=== PATIENT | female | born 1955 | race Caucasian/White ===

== ENCOUNTER 2018-08-31 18:20 | Emergency (ER) | payer BC ==
[2018-08-31] MEDS ORDERED: Sodium Chloride 0.9% 10 ML Syringe FLUSH PRN (18:41)
--- NOTE | 2018-08-31 18:41 | EDM.PDOC ---
ED HPI GENERAL MEDICAL PROBLEM - General Chief Complaint: Gastrointestinal Problem Stated Complaint: VOMITTING DIZZY Time Seen by Provider: 08/31/18 18:28 Source of Information: Reports: Patient History Limitations: Reports: No Limitations - History of Present Illness INITIAL COMMENTS - FREE TEXT/NARRATIVE: 63-year-old female who reports that she was working in the yard this afternoon doing some trimming some other long work and then at approximately 4:30 to 5 PM today she began to feel very dizzy and somewhat weak. She had no headache. She had no shortness of breath. She had no chest pain. She went inside at this time and drinks some water and then some Gatorade and laid down to try to relax. She was still having the room spinning dizziness at this time. And she seemed to feel a little bit better lying down but when she sat up she developed nausea and then had vomiting 2, throwing up all of the Gatorade in the water that she had taken. There was no blood in her emesis. She presents here via private vehicle with her with continued dizziness, and nausea and feeling weak all over. She still has no headache, chest pain or shortness of breath. She tells me that she felt completely well prior to this occurring today and she had felt well the day before. She has had an intermittent cough for the past few weeks but she feels that that is related to allergies. She has no pain. She rates her pain as a 0/10. There are no other associated signs or symptoms. There are no other modifying factors. 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 This was followed by radiation and chemotherapy.) Musculoskeletal Surgical History: Reports: Knee Replacement (Left total knee replacement.) Social & Family History - Tobacco Use Smoking Status *Q: Never Smoker - Caffeine Use Caffeine Use: Reports: Coffee, Soda - Alcohol Use Alcohol Use History: Yes Alcohol Use Frequency: Socially - Recreational Drug Use Recreational Drug Use: No - Living Situation & Occupation Living situation: Reports: (She is here with her .) Occupation: Retired ED ROS GENERAL - Review of Systems Review Of Systems: See Below Constitutional: Reports: Malaise, Weakness HEENT: Reports: Other (Dry mouth) Respiratory: Reports: No Symptoms Cardiovascular: Reports: Lightheadedness Endocrine: Reports: No Symptoms GI/Abdominal: Reports: Nausea, Vomiting : Reports: No Symptoms Musculoskeletal: Reports: No Symptoms Skin: Reports: Diaphoresis (Somewhat clammy) Neurological: Reports: Dizziness Hematologic/Lymphatic: Reports: No Symptoms Immunologic: Reports: No Symptoms ED EXAM, GENERAL - Physical Exam Exam: See Below Exam Limited By: No Limitations General Appearance: Alert, WD/WN, Moderate Distress Eye Exam: Bilateral Eye: EOMI, Normal Inspection, PERRL Ears: Normal External Exam Ear Exam: Bilateral Ear: Auricle Normal Nose: Normal Inspection, Normal Mucosa, No Blood Throat/Mouth: Normal Voice, No Airway Compromise, Other (Dry mucous membranes) Head: Atraumatic, Normocephalic Neck: Normal Inspection, Supple, Non-Tender, Full Range of Motion Respiratory/Chest: No Respiratory Distress, Lungs Clear, Normal Breath Sounds, No Accessory Muscle Use, Chest Non-Tender Cardiovascular: Normal Peripheral Pulses, Regular Rate, Rhythm, No JVD Peripheral Pulses: 2+: Radial (L), Radial (R), Dorsalis Pedis (L), Dorsalis Pedis (R) GI/Abdominal: Normal Bowel Sounds, Soft, Non-Tender, No Mass Back Exam: Normal Inspection, Full Range of Motion Extremities: Normal Inspection, Normal Range of Motion, Non-Tender, No Pedal Edema, Normal Capillary Refill Neurological: Alert, Oriented, CN II-XII Intact, Normal Cognition, No Motor/ Sensory Deficits Skin Exam: Intact, Normal Color, No Rash, Diaphoretic (Clammy) Course - Vital Signs Last Recorded V/S: Last Vital Signs Temp 36.3 C 08/31/18 19:41 Pulse 87 08/31/18 19:41 Resp 14 08/31/18 19:41 BP 148/78 H 08/31/18 19:41 Pulse Ox 100 08/31/18 19:41 - Orders/Labs/Meds Orders: Active Orders 24 hr Category Date Time Status Sodium Chloride 0.9% [Normal Saline] 1,000 ml Med 08/31/18 20:45 Active IV ASDIRECTED Sodium Chloride 0.9% [Saline Flush] Med 08/31/18 18:41 Active 10 ml FLUSH ASDIRECTED PRN Peripheral IV Insertion Adult [OM.PC] Routine Oth 08/31/18 18:41 Ordered Medication Orders Sodium Chloride (Normal Saline) 1,000 mls @ 500 mls/hr IV ASDIRECTED BRAN Last Admin: 08/31/18 20:45 Dose: 500 mls/hr Sodium Chloride (Saline Flush) 10 ml FLUSH ASDIRECTED PRN PRN Reason: Keep Vein Open Last Admin: 08/31/18 19:32 Dose: 10 ml Labs: Laboratory Tests 08/31/18 08/31/18 08/31/18 Range/Units 18:50 18:50 21:35 WBC 7.1 (4.5-12.0) X10-3/uL RBC 5.02 (3.23-5.20) x10(6)uL Hgb 14.6 (11.5-15.5) g/dL Hct 44.7 (30.0-51.3) % MCV 89.1 (80-96) fL MCH 29.0 (27.7-33.6) pg MCHC 32.6 (32.2-35.4) g/dL RDW 12.2 (11.5-15.5) % Plt Count 275 (125-369) X10(3)uL MPV 8.1 (7.4-10.4) fL Neut % (Auto) 72.4 (46-82) % Lymph % (Auto) 18.8 (13-37) % [place] % (Auto) 5.6 (4-12) % Eos % (Auto) 3 (1.0-5.0) % Baso % (Auto) 1 (0-2) % Neut # (Auto) 5.2 (1.6-8.3) # Lymph # (Auto) 1.3 (0.6-5.0) # [place] # (Auto) 0.4 (0.0-1.3) # Eos # (Auto) 0.2 (0.0-0.8) # Baso # (Auto) 0.0 (0.0-0.2) # Sodium 143 (135-145) mmol/L Potassium 3.7 (3.5-5.3) mmol/L Chloride 104 (100-110) mmol/L Carbon Dioxide 26 (21-32) mmol/L BUN 19 H (7-18) mg/dL Creatinine 1.0 (0.55-1.02) mg/dL Est Cr Clr Drug Dosing 53.91 mL/min Estimated GFR (MDRD) 56 L (>60) BUN/Creatinine Ratio 19.0 (9-20) Glucose 172 H (80-116) mg/dL Calcium 10.8 H (8.6-10.2) mg/dL Magnesium 2.0 (1.8-2.5) mg/dL Total Bilirubin 0.4 (0.1-1.3) mg/dL AST 20 (5-25) IU/L ALT 34 (12-36) U/L Alkaline Phosphatase 78 (56-112) IU/L Total Protein 7.7 (6.0-8.0) g/dL Albumin 4.7 H (3.2-4.6) g/dL Globulin 3.0 g/dL Albumin/Globulin Ratio 1.6 Urine Color Yellow (YELLOW) Urine Appearance Clear (CLEAR) Urine pH 7.0 H (5.0-6.5) Ur Specific [place] 1.010 (1.010-1.025) Urine Protein Negative (NEGATIVE) mg/dL Urine Glucose (UA) Normal (NORMAL) mg/dL Urine Ketones Negative (NEGATIVE) mg/dL Urine Occult Blood Negative (NEGATIVE) Urine Nitrite Negative (NEGATIVE) Urine Bilirubin Negative (NEGATIVE) Urine Urobilinogen Normal (NEGATIVE) mg/dL Ur Leukocyte Esterase Negative (NEGATIVE) Urine RBC 0-5 (0-5) Urine WBC 0-5 (0-5) Ur Squamous Epith Cells Few H (NS,R,O) Urine Bacteria Few H (NS) Meds: Medications Generic Name Dose Route Start Last Admin Trade Name Freq PRN Reason Stop Dose Admin Sodium Chloride 1,000 mls @ 500 mls/hr 08/31/18 20:45 08/31/18 20:45 Normal Saline IV 500 mls/hr ASDIRECTED BRAN Administration Sodium Chloride 10 ml 08/31/18 18:41 08/31/18 19:32 Saline Flush FLUSH 10 ml ASDIRECTED PRN Administration Keep Vein Open Discontinued Medications Generic Name Dose Route Start Last Admin Trade Name Shima PRN Reason Stop Dose Admin Sodium Chloride 1,000 mls @ 999 mls/hr 08/31/18 18:42 08/31/18 18:51 Normal Saline IV 08/31/18 19:42 999 mls/hr .BOLUS ONE Administration Promethazine HCl 12.5 mg/ 50.5 mls @ 200 mls/hr 08/31/18 20:45 08/31/18 20:49 Sodium Chloride IV 08/31/18 21:00 200 mls/hr ONETIME STA Administration Metoclopramide HCl 10 mg 08/31/18 19:26 08/31/18 19:30 Reglan IVPUSH 08/31/18 19:27 10 mg ONETIME ONE Administration Ondansetron HCl 4 mg 08/31/18 18:42 08/31/18 18:51 Zofran IVPUSH 08/31/18 18:43 4 mg ONETIME ONE Administration - Re-Assessments/Exams Free Text/Narrative Re-Assessment/Exam: 08/31/18 19:07: Care transferred to Dr. Mahajan. Please see Dr. Mahajan's note in regard to the patient's further clinical course and disposition. An IV has been established and the patient is getting IV fluids and Zofran. Laboratory testing is pending at this time. Departure - Departure Time of Disposition: 19:07 Disposition: Still A Patient 30 Condition: Fair Clinical Impression: Dehydration Heat exhaustion Qualifiers: Encounter type: initial encounter Qualified Code(s): T67.5XXA - Heat exhaustion , unspecified, initial encounter Vomiting Qualifiers: Vomiting type: unspecified Vomiting Intractability: non-intractable Nausea presence: with nausea Qualified Code(s): R11.2 - Nausea with vomiting, unspecified - Discharge Information Referrals: Chantal Bucio VENDER [Primary Care Provider] - Forms: ED Department Discharge Additional Instructions: Please increase water intake, advance diet as tolerated, please f/u, come back if your symptoms get worse acutely - My Orders Last 24 Hours: My Active Orders 08/31/18 20:45 Sodium Chloride 0.9% [Normal Saline] 1,000 ml IV ASDIRECTED - Assessment/Plan Last 24 Hours: My Active Orders 08/31/18 20:45 Sodium Chloride 0.9% [Normal Saline] 1,000 ml IV ASDIRECTED
[2018-08-31] MEDS ORDERED: Ondansetron 4 MG/2 ML SDV IVPUSH ONE (18:42)
[2018-08-31] MEDS ORDERED: Sodium Chloride 0.9% 1,000 ML IV ONE (18:42)
[2018-08-31] MEDS ORDERED: Metoclopramide 10 MG/2 ML SDV IVPUSH ONE (19:26)
[2018-08-31] MEDS ORDERED: Promethazine 12.5 MG in Sodium Chloride 0.9% 50 ML IV STA (20:45)
[2018-08-31] MEDS ORDERED: Sodium Chloride 0.9% 1,000 ML IV SCH (20:45)
== END 2018-08-31 22:51 | disposition still patient (30) ==
LOC: FB.ED 18:20
DX: T67.5XXA Heat exhaustion, unspecified, initial encounter (principal); E86.0 Dehydration; R11.2 Nausea with vomiting, unspecified; Z79.899 Other long term (current) drug therapy
CPT/HCPCS: 36415; 80053; 81001; 83735; 85025; 96361; 96365; 96375; 99284; J2405; J2550; J2765; J7030; J7050